=== PATIENT | female | born 1990 ===

== ENCOUNTER → 2023-11-18 14:00 | Outpatient (REF) | payer BC, SELFPAY | LOC: RAD 14:00 | PROVIDERS: ATTENDING PHYSICIAN Obstetrics & Gynecology | DX: O26.851 Spotting complicating pregnancy, first trimester (principal) | CPT/HCPCS: 76801; 76817 ==

== ENCOUNTER 2024-06-16 09:07 | Observation (INO) | payer OTHER, SELFPAY ==
[2024-06-16 09:22] VITALS: BP 117/60; BMI 28.3
== END 2024-06-16 12:31 | disposition home or self-care (01) ==
LOC: LDRP 09:07
PROVIDERS: ADMITTING PHYSICIAN Obstetrics & Gynecology
DX: O48.0 Post-term pregnancy (principal); Z3A.40 40 weeks gestation of pregnancy; H91.93 Unspecified hearing loss, bilateral; Z97.4 Presence of external hearing-aid
CPT/HCPCS: 59025; 76815; G0378

== ENCOUNTER 2024-06-20 01:04 | Inpatient (IN) | payer OTHER, SELFPAY ==
[2024-06-20 01:14] VITALS: BMI 28.3
[2024-06-20 01:31] VITALS: BP 124/68
[2024-06-20 01:54] LABS: % Basophils 0.2 % (0-2); % Eosinophils 0.4 % (0-6); % Immature Granulocytes 1.1 % (0-0.5); % Lymphocytes 16.4 % (20.5-51.1); % Monocytes 8.2 % (1.7-9.3); % Neutrophils 73.7 % (42.2-75.2); Absolute Eosinophils 0.1 10^3/uL (0-0.7); Absolute Immature Granulocytes 0.2 10^3/uL (0-0.05); Absolute Lymphocytes 2.1 10^3/uL (1.2-3.4); Absolute Monocytes 1.1 10^3/uL (0.1-0.6); Absolute Neutrophils 9.6 10^3/uL (1.4-6.5); Hematocrit 34.4 % (37.0-47.0); Hemoglobin 12.1 g/dL (12.0-16.0); Mean Corp Hgb Conc. 35.2 g/dL (33.0-37.0); Mean Corpuscular Volume 85.4 fL (81.0-99.0); Mean Platelet Volume 10.3 fL (7.4-10.4); Nucleated Red Blood Cells % 0 %; Platelet Count 239 10^3/uL (130-400); Red Blood Cell Count 4.03 10^6/uL (4.20-5.40); Red Cell Dist. Width 13.4 % (11.5-14.5); White Blood Cell Count 13.1 10^3/uL (4.8-10.8)
[2024-06-20] MEDS: SUBLIMAZE 100 MCG EPIDURAL (03:43)
[2024-06-20] MEDS: FENTANYL/BUPIVACAINE 100 EPIDURAL ×2 (03:45→11:18)
[2024-06-20] MEDS: LR 1000 IV (11:18)
[2024-06-20] MEDS: PITOCIN 30 UNITS/NSS 500 ML IV ×2 (12:49→15:47)
[2024-06-20] MEDS: XYLOCAINE-MPF 1% VIAL 8 ML INFIL (15:48)
[2024-06-20] MEDS: TYLENOL 650 MG PO (20:38)
[2024-06-20] MEDS: MOTRIN 600 MG PO (20:38)
[2024-06-21] MEDS: TYLENOL 650 MG PO ×3 (01:45→20:04)
--- NOTE | 2024-06-21 04:23 | DOWNTIME ---
There was a [employer] Deputy [employer] Generalist Downtime on 06/21/2024 from 0100 to 06/22/2023 at 0420 . Downtime documentation of patient's care, including medication administrations, has been reconciled in the electronic record per guidelines. Refer to the
patient's paper chart under the miscellaneous tab to see printed paper medication records and downtime forms.
[2024-06-21 05:39] LABS: Hematocrit 29.4 % (37.0-47.0); Hemoglobin 9.9 g/dL (12.0-16.0)
[2024-06-21] MEDS: PRENATAL PLUS 1 TABLET PO (10:44)
[2024-06-21] MEDS: MOTRIN 600 MG PO ×2 (10:44→20:04)
[2024-06-21] MEDS: FEOSOL 325 MG PO (20:06)
[2024-06-22] MEDS: TYLENOL 650 MG PO ×2 (03:46→08:12)
[2024-06-22] MEDS: MOTRIN 600 MG PO (03:46)
[2024-06-22] MEDS: FEOSOL 325 MG PO (08:12)
[2024-06-22] MEDS: SENOKOT-S 1 TABLET PO (08:12)
[2024-06-22] MEDS: PRENATAL PLUS 1 TABLET PO (08:12)
[2024-06-23 10:56] LABS: Syphilis/T. pallidum Ab Reflex Negative (Negative)
== END 2024-06-22 12:00 | disposition home or self-care (01) | DRG 807 ==
LOC: LDRP 01:04
PROVIDERS: Obstetrics & Gynecology; ADMITTING PHYSICIAN Obstetrics & Gynecology
PROC: 0UQMXZZ Repair Vulva, External Approach (ICD-10-PCS; 2024-06-20)
PROC: 0KQM0ZZ Repair Perineum Muscle, Open Approach (ICD-10-PCS; 2024-06-20)
PROC: 10E0XZZ Delivery of Products of Conception, External Approach (ICD-10-PCS; 2024-06-20)
DX: O48.0 Post-term pregnancy (principal); Z37.0 Single live birth; Z3A.41 41 weeks gestation of pregnancy; O70.1 Second degree perineal laceration during delivery; O62.1 Secondary uterine inertia
CPT/HCPCS: 85014; 85018; 85025; 86780; 86850; 86900; 86901